=== PATIENT | male | born 1980 | race Caucasian/White ===

== ENCOUNTER 2017-04-02 17:58 | Inpatient (IN) ==
[2017-04-02] MEDS ORDERED: INSULIN REGULAR, HUMAN 100 UNIT/ML INJECTION IVP ONE (18:24)
[2017-04-02] MEDS ORDERED: NS 1,000 ML IV ONE (18:24)
--- NOTE | 2017-04-02 18:30 | Emergency Department Report ---
General Adult HPI - General Chief complaint: Medical Emergency Stated complaint: high blood sugar Time Seen by Provider: 04/02/17 18:16 - History of Present Illness HPI narrative: 36-year-old gentleman presents with severe thirst and increased urination. Patient states he is "peeing all day long." He has been drinking a lot of water , increasing that over the last few days. He was seen yesterday for an infection of his abdomen and started on Keflex. However today his thirst got worse and his overall energy level dropped significantly. His brought him in to the ED for evaluation. Nursing checked his blood sugar medially on arrival he was greater than 500. Gentleman is morbidly obese, very pleasant father of one child age 33 years old. He has no other health problems, takes no other medications. No known history of cardiac or pulmonary issues. - Related Data Home Medications Medication Instructions Recorded Confirmed CephALEXin [Keflex] 500 mg PO TID 04/02/17 04/02/17 Allergies Allergy/AdvReac Type Severity Reaction Status Date / Time No Known Drug Allergies AdvReac Unknown Verified 04/02/17 18:24 Review of Systems All systems: reviewed and negative except as stated PFSH Patient Stated Medical History Diabetes Mellitus Type 2 Yes: NEWLY DX - Social History Smoking status: Unknown if ever smoked Substance use type: does not use Alcohol intake frequency: does not drink Physical Exam - Limitations Limitations: no limitations - General General appearance: alert, anxious - Normal Exams: Head:: Normocephalic without trauma Neck:: Full range of motion, without adenopathy, JVD, bruits or thyromegaly Chest/Respirations:: Clear all hong, with good airflow, and symmetry bilaterally Cardiovascular:: Regular rate and rhythm, without murmur or gallop, Pulses 2+ all extremities, capillary refill, <2 seconds all extremities Abdomen:: Bowel sounds positive, soft, non-tender, non-distended, no hepatosplenomegaly, masses or bruits noted Neurological:: Patient is alert, and oriented, cranial nerves, motor/sensory/ cerebellar, exams w/o gross deficits, to observation Psychiatric:: Patient exhibits, appropriate attention, emotion and affect Course Vital Signs Temperature 97.4 F 04/02/17 18:02 Pulse Rate 83 04/02/17 18:02 Respiratory Rate 16 04/02/17 18:02 Blood Pressure 183/85 H 04/02/17 18:02 Pulse Oximetry 97 04/02/17 18:02 Temperature 97.4 F 04/02/17 18:02 Pulse Rate 84 04/02/17 19:00 Respiratory Rate 29 H 04/02/17 19:00 Blood Pressure 152/77 H 04/02/17 19:10 Pulse Oximetry 97 04/02/17 19:00 Medical Decision Making - MDM Narrative Medical decision making narrative: IV started, 1 L normal saline. Patient given 8 units Humulin as initial blood sugar was 960. After the 1 L normal saline and insulin, sugar was still above 500. Other labs appropriate. Initially addressed patient has a new onset type II diabetic, however when I spoke with hospitalist he recommended ruling out DKA as despite the fact that this patient is 152 kg, he is certainly still a risk to be a type I diabetic. Beta hydroxybutyrate and venous blood gas ordered and pending. Patient will be sent to ICU for management by hospitalist. - Lab Data Result diagrams: 04/02/17 18:18 04/02/17 18:18 Lab Results 04/02/17 04/02/17 04/02/17 Range/Units 18:18 18:18 18:26 WBC 8.9 (4.5-11.0) T/MM3 RBC 5.12 (4.50-5.90) M/MM3 Hgb 13.6 (13.5-17.5) GM/DL Hct 40.7 L (41-53) % MCV 79.5 L (80-100) UM3 MCH 26.6 (26-34) UUG MCHC 33.4 (31-37) GM/DL RDW Std Deviation 40.9 (36.9-50.2) FL Plt Count 235 (130-400) T/MM3 MPV 11.3 (9.4-12.4) UM3 Immature Gran % (Auto) 0.2 (0.0-0.5) % Neut % (Auto) 62.5 (33-66) % Lymph % (Auto) 30.3 (23-45) % [place] % (Auto) 5.8 (0-9.0) % Eos % (Auto) 1.0 (0-4) % Baso % (Auto) 0.2 (0-2) % Neut # 5.6 (1.8-7.7) T/MM3 Lymph # 2.7 (1-4.8) T/MM3 [place] # 0.5 (0-0.8) T/MM3 Eos # 0.1 (0-0.5) T/MM3 Baso # 0.0 (0-0.2) T/MM3 Abs Immat Gran (auto) 0.02 (0.00-0.03) T/MM3 Turbidity 81 H (0-20) Sodium 128 L (134-144) MEQ/L Potassium 4.7 (3.6-5) MEQ/L Chloride 96 L (98-107) MEQ/L Carbon Dioxide 15 L (22-30) MEQ/L Anion Gap 17 H (5-15) MEQ/L BUN 13.0 (9-20) MG/DL Creatinine 0.8 (0.8-1.5) MG/DL GFR Calculation 108 BUN/Creatinine Ratio 16 (6-26) RATIO Glucose 930 H* (75-110) MG/DL Hemoglobin A1c 10.4 H (6.1-7.9) % Calculated Osmolality 293 H (261-280) MOSM/KG Calcium 9.0 (8.4-10.2) MG/DL Total Bilirubin 0.60 (0.20-1.30) MG/DL Icterus Index 3 (0-7) AST 20 (17-59) U/L ALT 40 (21-72) U/L Alkaline Phosphatase 85 (38-126) U/L Total Protein 7.6 (6.3-8.2) G/DL Albumin 4.2 (3.5-5.0) G/DL Globulin 3.4 (2.4-3.6) G/DL Albumin/Globulin Ratio 1.2 (1.1-2.2) RATIO Specimen Hemolysis < 15 (0-25) Ur Collection Type Urine, clean catch Urine Color Yellow (YELLOW) Urine Clarity Clear Urine pH 5.5 (5.0-8.0) Ur Specific [place] <=1.005 L (1.015-1.025) Urine Protein Negative (NEGATIVE) Urine Glucose (UA) 3+ A (NEGATIVE) Urine Ketones Negative (NEGATIVE) Urine Occult Blood Negative (NEGATIVE) Urine Nitrate Negative (NEGATIVE) Urine Bilirubin Negative (NEGATIVE) Urine Urobilinogen 0.2 (NORMAL) EU/DL Ur Leukocyte Esterase Negative (NEGATIVE) Urinalysis Comment Microscopic not ind. Disposition Disposition: 02 To [facility] [place] Acute Care Condition: Stable Prescriptions: No Action CephALEXin [Keflex] 500 mg PO TID Referrals: Brady Lynne MD [Family Provider] - Time of Disposition: 20:20 - Seen By: physician
[2017-04-02] MEDS: SALINE FLUSH 10ml SYRINGE IVF PRN (19:05)
[2017-04-02] MEDS ORDERED: INSULIN REGULAR, HUMAN 100 UNIT in NS 100 ML IV PRN (22:57)
[2017-04-02] MEDS ORDERED: POTASSIUM CHLORIDE INJ 20 MEQ in NS 1,000 ML IV SCH (23:30)
[2017-04-03] MEDS ORDERED: POTASSIUM CHLORIDE INJ 20 MEQ, POTASSIUM PHOSPHATE (mEq) 20 MEQ in NS 1,000 ML IV SCH (04:46)
--- NOTE | 2017-04-03 05:50 | History & Physical Report ---
<Mick Albrecht - Last Filed: 04/03/17 05:46> History of Present Illness Date: 04/03/17 Chief complaint: weakness HPI: This is a 36 y/o male is relative good health who for the past 2 weeks has had increased po intake and increased frequency of urination. The pateint was noted to be increased confusion today. This mostly was what precipitated the admission to the ED today. In the ED the patient's blood sugar is in the 800's with a gap metabolic acidosis The patient's urine is neg for ketones and the VBG does not demonstrate significant acidosis. AT this time the pateint is admitted into the ICU on an insulin drip for further treatment of acute onset diabetes. Review of Systems Review of systems: no headache, some blurring to vison, dry mouth, no neck pain, no chest pain, mild shortness of breath. patient reports congestion in the am but feels this isdue to his snoring, no neck or jaw pain, no heart palpitations, no abdomen pain, mild nausea without emesis, 2 or 3 loose stools yesterday, no fever, chills , no focal neuro complatins, increased frequency of urination. 12 point ros otherwise negative except for described abvoe. [facility] Patient Stated Medical History Diabetes Mellitus Type 2 Yes: NEWLY DX Cellulitis Yes: r leg 02/24 Surgical History: herniorrhaphy as an infant Family History Updates: mother alive with hypertension, doesn'tknow his father, no signficant diabetes in his immediate family - Social History Smoking status: Former smoker Housing: house Household members: spouse Medications Home Medications Medication Instructions Recorded Confirmed Type CephALEXin [Keflex] 500 mg PO TID 04/02/17 04/02/17 History Allergies Allergy/AdvReac Type Severity Reaction Status Date / Time No Known Drug Allergies AdvReac Unknown Verified 04/02/17 18:24 Exam Vital Signs: Temperature 98.1 F 04/03/17 03:00 Pulse Rate 75 04/03/17 04:00 Respiratory Rate 23 04/03/17 03:00 Blood Pressure 125/58 04/03/17 03:00 Pulse Oximetry 96 04/03/17 03:00 Oxygen Delivery Method Room Air Telemetry Rhythm: Sinus Tachycardia Comments: well developed well nourished obese male in minimal distress - Constitutional Present: mild distress, well nourished, well developed, obese, cooperative - Routine HEENT Exam Head: Present: normocephalic, atraumatic Eye: Present: EOMI, conjunctivae pink. Absent: scleral injection ENT: Present: mucous membranes dry - Routine Neck Exam Present: supple, full ROM - Routine Respiratory Exam Present: decreased breath sounds, CTA bilaterally - Routine Cardiovascular Exam Present: no murmur, tachycardia - Routine Abdominal Exam Present: soft, non distended. Absent: tenderness - Routine Extremities Exam Present: no edema, full ROM - Routine Back/Spine/Pelvis Exam Back/Spine: Present: full ROM - Routine Skin Exam Present: dry - Routine Neurological Exam Present: alert, oriented X3, CN II-XII intact. Absent: motor deficit - Routine Psychiatric Exam Present: normal affect Results - Labs CBC & Chem 7: 04/03/17 03:57 04/03/17 03:57 Labs: labs reviewed. mostly hyperglycemic with small gap metabolic acidosis Assessment and Plan (1) Hyperglycemia Current visit: Yes Status: Acute 04/03/17 05:59 this patient is a new onset diabetic. most likely type 2 and morbid obesity plays a role. his level of hyperglycemia is somewhat unusual for an initial presentation. The patient will be admitted into the ICU for insulin drip and utilization of DKA protocol. once glycemic control reached a transition to basal bolus will be indicated. If renal function maintains he might benefit from both insulin and glucaphage. Obviously early childhood educator aide will be instrumental in this patient;s continued improvment. (2) Hyponatremia Current visit: Yes Status: Acute 04/03/17 06:01 secondary to hypovolemia and psuedohyponatremia. ivf and glycemic control should resolve. serial bmp ordered. follow. (3) Morbid obesity with BMI of 45.0-49.9, adult Current visit: Yes Status: Acute 04/03/17 06:02 clearly playing a role in insulin resistance. weight loss will serve his glycemic problem and nutritional consult during hospitalization would be welcomed. (4) Obstructive sleep apnea Current visit: Yes Status: Acute 04/03/17 06:03 not diagnosed but patient with symptoms. need to facilitate workup priror to discharge and perhaps nocturnal oximetry. DVT Prophylaxis: SCD's, Lovenox GI Prophylaxis: Protonix Resuscitation Status: Full Code Sepsis Assessment - Evaluation Sepsis screening result: No Definite Risk Hospital Course Summary Disclaimer: The visit summary below is not to be considered part of the above Progress Note. <IzaguirreStefany - Last Filed: 04/03/17 10:52> History of Present Illness Date: 04/03/17 [facility] Patient Stated Medical History Diabetes Mellitus Type 2 Yes: NEWLY DX Cellulitis Yes: r leg 02/24 Exam Vital Signs: Temperature 97.7 F 04/03/17 07:00 Pulse Rate 73 04/03/17 08:00 Respiratory Rate 24 04/03/17 07:00 Blood Pressure 127/61 04/03/17 07:00 Pulse Oximetry 96 04/03/17 07:00 Oxygen Delivery Method Room Air Results - Labs CBC & Chem 7: 04/03/17 03:57 04/03/17 10:07 Assessment and Plan (1) Hyperglycemia Current visit: Yes Status: Acute (2) Hyponatremia Current visit: Yes Status: Acute (3) Morbid obesity with BMI of 45.0-49.9, adult Current visit: Yes Status: Acute (4) Obstructive sleep apnea Current visit: Yes Status: Acute Assessment and Plan: 04/03/2017-Dr. Izaguirre I have reviewed the H&P above and agree. Please see my additions below The patient was seen in his room accompanied by his . Chief complaint: Polyuria and polydipsia with elevated blood sugar at home History of present illness: Patient is a very pleasant 36-year-old male. He has had 2 weeks of polyuria and polydipsia. His boss counted one day that he drank 30 bottles of water at work. He has had progressively increasing fatigue. Yesterday he felt too poorly to go to work. One of his 's friends brought over her glucometer and his blood sugar was over 600 so they went to the emergency room. Here in the ER his blood sugar on basic metabolic profile was 930 with a sodium of 128, bicarbonate 15, anion gap of 17. He did not previously have a diagnosis of diabetes. He has has not seen a doctor for primary care in a long time. He did see a doctor at work about a month ago regarding a right Achilles injury and cellulitis for which she was placed on Keflex. The injury did not break the skin. That did resolve but for the past several days he has had eye drainage from his umbilicus that was initially bloody and now is purulent. He has minimal discomfort in this area. He has had no injury to this area. Comprehensive review of systems: He has had some night sweats and feels hot more frequently. He has not had any fevers or chills. He had vomiting and diarrhea last week but that has resolved. He does not sleep well at night and snores very loudly. He wakes up frequently at night. Other than the past 2 weeks he has not noticed excessive somnolence or fatigue. Otherwise comprehensive review of systems is negative other than the above in history of present illness Past medical history Cellulitis of the right Achilles one month ago Inguinal herniorrhaphy at age 1 or 1 Social history. The patient is a former smoker and quit smoking 3 months ago he still occasionally chews tobacco and I recommended that he stop this, due to risk for oral cancer. He drinks alcohol occasionally. He is and has a 3- year-old son at home. Family history significant for multiple family members on his father's side who have diabetes. His father has hypertension. Mother has hypertension. Medications: Keflex restarted a few days ago for cellulitis of the umbilicus, Tylenol when necessary, occasional "pain reliever PM" at nighttime allergies: no known drug allergies Physical exam GEN-alert, oriented, no acute distress. Patient is obese HEENT-sclerae anicteric, pupils are equal, oropharynx is moist NECK-supple CV-regular rate and rhythm CHEST-clear to auscultation bilaterally ABD-soft, nontender, nondistended with positive bowel sounds. Abdomen is obese. He does have purulent drainage coming from the umbilicus. At the distal end of the umbilicus it appears that there is a split in the skin -no [place] EXT-no edema, no signs of cellulitis currently NEURO-alert and oriented 3, no focal deficits SKIN-warm and dry and without rashes. Please see description of umbilicus above under abdomen. CBC is fairly unremarkable other than mild anemia with hemoglobin of 13.4 and MCV of 78 Hyponatremia has resolved and blood sugars this morning but in the 140s on insulin drip. Phosphorus is normal magnesium is mildly high at 2.4 A1c is 10.4 Impression DKA with new onset diabetes Pseudohyponatremia-resolved Morbid obesity Probable obstructive sleep apnea Presumed infected draining umbilical wound Microcytic anemia-mild Oral tobacco use Plan Consult Dr. Talavera for new onset diabetes. I did talk with him and he recommended starting regular insulin 20 units with meals and stopping insulin drip 30 minutes after his first dose of regular insulin. Will start long-acting insulin 45 units at at bedtime. Dr. Talavera will see the patient tomorrow. We'll consult diabetes education nurse. The patient will be needing insulin and will need to learn how to give injections and monitor blood sugars. We'll check overnight oximetry. Check iron panel. Recommend tobacco cessation. Wound and skin consult and culture and sensitivity of draining umbilical wound. Continue Keflex for now. Hospital Course Summary Disclaimer: The visit summary below is not to be considered part of the above Progress Note.
[2017-04-03] MEDS ORDERED: NS with KCL 20 mEq 1,000 ML IV SCH (08:00)
--- NOTE | 2017-04-03 08:30 | XRay Report ---
INDICATION: weakness PROCEDURE: CHEST 2-VIEWS UPRIGHT (PA & LAT) Encounter: Initial COMPARISON: August 2014 FINDINGS: The lungs are clear without evidence of focal abnormal airspace opacity. There is no pleural effusion or pneumothorax. The heart size, mediastinal contours and pulmonary vascularity are within normal limits. There is no significant skeletal abnormality. IMPRESSION: No acute cardiopulmonary disease. .
[2017-04-03] MEDS ORDERED: DEXTROSE 50% SYRINGE 50ml (1 AMP) IVP PRN (10:08)
[2017-04-03] MEDS ORDERED: GLUCOSE ORAL GEL 40% 37.5gm PO PRN (10:13)
[2017-04-03] MEDS ORDERED: INSULIN DETEMIR 100unit/ml INJECTION SQ SCH (10:30)
[2017-04-03] MEDS: INSULIN ASPART 100unit/ml INJECTION SQ SCH ×2 (12:33→16:57)
--- NOTE | 2017-04-03 16:12 | Wound Care Progress Note ---
Wound Center Progress Note: Pt has an umbilical infection (per pt) and he was put in the hospital. Pt is obese and difficult to see a wound. It did have a gauze in it that was bloody. At this time Aqucacell AG placed in belly button then covered with Mepilex.
[2017-04-03] MEDS: SALINE FLUSH 10ml SYRINGE IVF PRN (21:24)
[2017-04-04 04:53] VITALS: RESP 20
[2017-04-04] MEDS: INSULIN ASPART 100unit/ml INJECTION SQ SCH ×2 (08:23→08:24)
[2017-04-04] MEDS ORDERED: LISINOPRIL 10 MG TABLET PO SCH (10:30)
[2017-04-04] MEDS ORDERED: INSULIN ASPART 100unit/ml INJECTION SQ SCH ×2 (10:51→11:45)
[2017-04-04 11:24] VITALS: BP 139/78; PULSE 69; TEMP 96.7; O2SAT 96
--- NOTE | 2017-04-04 12:39 | Consultation ---
ENDOCRINE CONSULT DATE OF ADMISSION: 04/03/2017 DATE OF CONSULT: 04/04/2017 REASON FOR ADMISSION Diabetic ketoacidosis. HISTORY OF PRESENT ILLNESS This 36-year-old male had been in relatively good health until a month or two prior to admission when he started to notice polyuria and polydipsia. He denied any blurry vision. He noticed a gradual decline of energy. He was noted to have an umbilical infection with a little blood discharge from around his umbilicus two days prior to admission. On the day of admission he had a friend with a glucose meter check his blood sugar and it was greater than 600, so he presented to the emergency room. On admission he was found to have a glucose of 960 with an anion gap of 17 and thought to be in mild diabetic ketoacidosis. He was admitted to the intensive care unit and treated with DKA protocol with rapid resolution overnight of the ketoacidosis. By the next morning he was doing better. At no time did he have any nausea or vomiting. It was decided to switch him from IV insulin to subcutaneous insulin. He was started at lunchtime on 20 units of NovoLog t.i.d. a.c. and 45 units of Levemir which was supposed to be given at bedtime but instead was given around 2 p.m. His blood sugars remained in the 200s during the remainder of the day and was still 288 fasting at the time of my consult this morning. PAST MEDICAL HISTORY Negative for hypertension, hypercholesterolemia, heart disease or stroke. FAMILY HISTORY Remarkable for diabetes, hypertension, stroke and unspecified cancers. SOCIAL HISTORY The patient stopped smoking five years ago but still chews tobacco at work. ALLERGIES None known. REVIEW OF SYSTEMS Otherwise unremarkable. PHYSICAL EXAM Afebrile with stable vital signs. GENERAL: Well-developed obese male alert, oriented and in no acute distress. HEENT: Unremarkable. NECK: Without thyromegaly or lymphadenopathy. LUNGS: Clear. HEART: Regular rate and rhythm. ABDOMEN: Obese with normal bowel sounds. No tenderness or organomegaly. EXTREMITIES: Without edema. LABS Normal electrolytes. Creatinine 0.8. Hemoglobin A1c 10.4. TSH 1.66. ASSESSMENT 1. Diabetic ketoacidosis, resolved. 2. Type 2 diabetes mellitus, uncontrolled, new onset. The patient has responded well to a dose of about 0.5 units per kg total daily insulin. RECOMMENDATIONS Insulin is adjusted to 24 units t.i.d. a.c. and 50 units Levemir at bedtime. He should complete survival skills with certified pharmacy tech and counseling by the dietitian prior to going home. I will plan on seeing him as an outpatient in about 2 weeks. He is instructed to check his blood sugars fasting and 2 hours after meals and call for any unexpected results. I have discussed target levels of averaging glucose below 140. Thank you very much for asking me to assist in caring for this nice gentleman. I will follow him along with you while he remains in the hospital. This case was discussed with Dr. Mobley. JORGE
--- NOTE | 2017-04-04 13:49 | Progress Note ---
Subjective: F/U: New onset Type II DM, DKA Doing better today. Feels tire in general. Eating and drinking well. No n/v. Has undergone DM education and dietary instruction. Understands how to monitor and record blood sugars. Can give himself insulin injections. Breathing stable no chest pain. Ambulating well. Objective Vital signs: Temperature 96.7 F L 04/04/17 08:00 Pulse Rate 69 04/04/17 08:00 Respiratory Rate 20 04/04/17 08:00 Blood Pressure 139/78 04/04/17 08:00 Pulse Oximetry 96 04/04/17 08:00 Oxygen Delivery Method Room Air Height/Weight/BMI: Weight 153 kg - Constitutional Present: no acute distress, well nourished, well developed, morbidly obese, cooperative - Routine HEENT Exam Head: Present: normocephalic, atraumatic Eye: Present: EOMI, PERRL ENT: Present: mucous membranes moist - Routine Respiratory Exam Present: CTA bilaterally. Absent: respiratory distress, wheezes, distant breath sounds, diminished air movement - Routine Cardiovascular Exam Present: RRR - Routine Abdominal Exam Present: soft, normoactive bowel sounds, non distended, non tender - Routine Extremities Exam Present: edema (+1 BLE), pulses intact. Absent: cyanosis, clubbing - Routine Musculoskeletal Exam Musculoskeletal: Present: no clubbing or cyanosis, normal strength - Routine Skin Exam Present: dry, warm - Routine Neurological Exam Present: alert, oriented X3, CN II-XII intact, vision grossly intact, hearing grossly intact. Absent: motor deficit - Routine Psychiatric Exam Present: normal affect, normal thought process, cooperative, good insight, good judgment Results - Labs CBC & Chem 7: 04/04/17 04:32 04/04/17 04:32 Labs: Laboratory Tests 04/02/17 04/03/17 18:18 10:07 Hemoglobin A1c 10.4 H TSH 1.66 Microbiology Results: Microbiology 04/03/17 11:00 Abdomen, Middle Gram Stain - Final 04/03/17 11:00 Abdomen, Middle Superficial Wound Culture - Preliminary No Growth After 1 Day Assessment and Plan (1) DKA (diabetic ketoacidoses) Current visit: Yes Status: Resolved (2) Type II diabetes mellitus Current visit: Yes Status: Acute (3) Hyperglycemia Current visit: Yes Status: Acute (4) Hyponatremia Current visit: Yes Status: Acute (5) Morbid obesity with BMI of 45.0-49.9, adult Current visit: Yes Status: Acute 04/03/17 06:02 clearly playing a role in insulin resistance. weight loss will serve his glycemic problem and nutritional consult during hospitalization would be welcomed. Resuscitation Status: Full Code Assessment and Plan: Impression DKA with new onset diabetes Pseudohyponatremia-resolved Morbid obesity Probable obstructive sleep apnea Presumed infected draining umbilical wound Microcytic anemia-mild Oral tobacco use Plan Blood sugars with improvement. DKA resolved. Patient has had diabetic education and dietary education. Understands how to monitor blood sugars and inject insulin. Will monitor blood sugars fasting and 2 hours after meals. Questions answered. Rx for glucometer strips, insulin needles/syringes, and insulin injection supplies given. Blood pressure with elevation above 120. Will start lisinopril 10mg daily to help decrease blood pressure and provide renal protection. Discussed side effects of this medication with patient. As medically stable, will discharge to home. F/U with Dr Lynne on 04/10 as previously scheduled. Recommend checking BMP at that time due to initiation of DEEPAK inhibitor. F/U with Dr Talavera in 2 weeks. Can call office as needed with questions or concerns. See orders for details Case discussed with CM and pt's . Time spent with care and discharge greater than 35 minutes. Sepsis Assessment - Evaluation Sepsis screening result: No Definite Risk Hospital Course Summary Disclaimer: The visit summary below is not to be considered part of the above Progress Note. Hospital Course: Impression DKA with new onset diabetes Pseudohyponatremia-resolved Morbid obesity Probable obstructive sleep apnea Presumed infected draining umbilical wound Microcytic anemia-mild Oral tobacco use 04/02/17 Patient admitted to CCU for insulin drip due to DKA presenting symptom of his newly Dx Diabetes. DKA protocol in place. Lab monitored. 04/03/[address] Talavera for new onset diabetes. I did talk with him and he recommended starting regular insulin 20 units with meals and stopping insulin drip 30 minutes after his first dose of regular insulin. Will start long-acting insulin 45 units at at bedtime. Dr. Talavera will see the patient tomorrow. We'll consult diabetes education nurse. The patient will be needing insulin and will need to learn how to give injections and monitor blood sugars. We'll check overnight oximetry. Check iron panel. Recommend tobacco cessation. Wound and skin consult and culture and sensitivity of draining umbilical wound. Continue Keflex for now. Transfer to medical floor as DKA resolved and not needing insulin drip. 04/04/17 Blood sugars with improvement. DKA resolved. Patient has had diabetic education and dietary education. Understands how to monitor blood sugars and inject insulin. Will monitor blood sugars fasting and 2 hours after meals. Questions answered. Rx for glucometer strips, insulin needles/syringes, and insulin injection supplies given. Blood pressure with elevation above 120. Will start lisinopril 10mg daily to help decrease blood pressure and provide renal protection. Discussed side effects of this medication with patient. As medically stable, will discharge to home. F/U with Dr Lynne on 04/10 as previously scheduled. Recommend checking BMP at that time due to initiation of DEEPAK inhibitor. F/U with Dr Talavera in 2 weeks. Can call office as needed with questions or concerns. See orders for details
--- NOTE | 2017-04-04 14:08 | Discharge Summary ---
Discharge Information Date of admission: 04/02/17 22:04 Anticipated date of discharge: 04/04/17 Attending Physician: Dr Izaguirre Primary care physician: Brady Lynne MD Consults: Dietary Consult [employer] Consult Carb Count, Medications; newly diagnosed: Will need insulin Physician Consult: [facility] Consult: Reason - umbilical wound draining - Discharge Diagnosis Discharge Diagnosis: DKA with new onset diabetes Type II DM - uncontrolled; new Dx Associated conditions and complications Pseudohyponatremia-resolved Morbid obesity Probable obstructive sleep apnea Presumed infected draining umbilical wound Microcytic anemia-mild Oral tobacco use - Laboratory Labs: Laboratory Tests from Admission 04/02/17 18:18 Sodium 128 L Potassium 4.7 Chloride 96 L Carbon Dioxide 15 L Anion Gap 17 H BUN 13.0 Creatinine 0.8 GFR Calculation 108 BUN/Creatinine Ratio 16 Glucose 930 H* Hemoglobin A1c 10.4 H Calculated Osmolality 293 H Total Bilirubin 0.60 AST 20 ALT 40 Laboratory Tests 04/03/17 10:07 TSH 1.66 04/04/17 04:32 04/04/17 04:32 - Microbiology Microbiology 04/03/17 11:00 Abdomen, Middle Gram Stain - Final 04/03/17 11:00 Abdomen, Middle Superficial Wound Culture - Preliminary No Growth After 1 Day History of Present Illness HPI: This is a 36 y/o male is relative good health who for the past 2 weeks has had increased po intake and increased frequency of urination. The pateint was noted to be increased confusion today. This mostly was what precipitated the admission to the ED today. In the ED the patient's blood sugar is in the 800's with a gap metabolic acidosis The patient's urine is neg for ketones and the VBG does not demonstrate significant acidosis. AT this time the pateint is admitted into the ICU on an insulin drip for further treatment of acute onset diabetes. For complete details of the H&P refer to that document. Objective Vital signs: Temperature 96.7 F L 04/04/17 08:00 Pulse Rate 69 04/04/17 08:00 Respiratory Rate 20 04/04/17 08:00 Blood Pressure 139/78 04/04/17 08:00 Pulse Oximetry 96 04/04/17 08:00 Oxygen Delivery Method Room Air Height/Weight/BMI: Weight 153 kg Hospital Course This is a general summary of the patient's hospital course. For more details refer to the complete medical record. Hospital course: Impression DKA with new onset diabetes Pseudohyponatremia-resolved Morbid obesity Probable obstructive sleep apnea Presumed infected draining umbilical wound Microcytic anemia-mild Oral tobacco use 04/02/17 Patient admitted to CCU for insulin drip due to DKA presenting symptom of his newly Dx Diabetes. DKA protocol in place. Lab monitored. 04/03/[address] Talavera for new onset diabetes. I did talk with him and he recommended starting regular insulin 20 units with meals and stopping insulin drip 30 minutes after his first dose of regular insulin. Will start long-acting insulin 45 units at at bedtime. Dr. Talavera will see the patient tomorrow. We'll consult diabetes education nurse. The patient will be needing insulin and will need to learn how to give injections and monitor blood sugars. We'll check overnight oximetry. Check iron panel. Recommend tobacco cessation. Wound and skin consult and culture and sensitivity of draining umbilical wound. Continue Keflex for now. Transfer to medical floor as DKA resolved and not needing insulin drip. 04/04/17 Blood sugars with improvement. DKA resolved. Patient has had diabetic education and dietary education. Understands how to monitor blood sugars and inject insulin. Will monitor blood sugars fasting and 2 hours after meals. Questions answered. Rx for glucometer strips, insulin needles/syringes, and insulin injection supplies given. Blood pressure with elevation above 120. Will start lisinopril 10mg daily to help decrease blood pressure and provide renal protection. Discussed side effects of this medication with patient. As medically stable, will discharge to home. F/U with Dr Lynne on 04/10 as previously scheduled. Recommend checking BMP at that time due to initiation of DEEPAK inhibitor. F/U with Dr Talavera in 2 weeks. Can call office as needed with questions or concerns. See orders for details Time spent with patient: discharge greater than 30 minutes Discharge Plan - Med Rec/Dispo Referrals/Follow Up: Brady Lynne MD [Family Provider] - (Apr 10. Hospital f/u-new Dx DM. Lisinopril started - recommend checking BMP) Matti Talavera MD [Physician] - 2 Weeks ([facility] F/U for new Dx DM.) Sadie Lorenzo MD [Physician] - (Wound clinic in near future - being followed by wound team during admission. ) Additional Instructions: Check sugars fasting and 2 hours after meals. Prescriptions: New Insulin Detemir [Levemir] 50 unit SQ HS #1 vial Lisinopril [Prinivil] 10 mg PO DAILY #30 tablet Insulin Aspart [NovoLOG] 24 unit SQ WM #1 vial Continue CephALEXin [Keflex] 500 mg PO TID Discharge Instructions/Outpatient Orders: Final Provider Discharge Instructions Location: Determined By Patient - Disposition 01 Discharged Home, Self-Care - Attestation Attestation Narrative: 04/04/17 14:24 I have independently interviewed and examined patient prior to discharge. See my progress not from today for details. Medically stable for discharge to home.
[2017-04-04] MEDS ORDERED: INSULIN DETEMIR 100unit/ml INJECTION SQ SCH ×2 (21:00)
== END 2017-04-04 15:30 | disposition home or self-care (01) | DRG 638 ==
LOC: ED 17:58 → CCU 21:58 → MED 04-03 16:54
PROVIDERS: ADMIT Emergency Medicine; ATTEND Internal Medicine